=== PATIENT | male | born 1995 | race Two or more races ===

== ENCOUNTER 2017-08-17 03:00 | Emergency (ER) | payer SELFPAY ==
[2017-08-17 03:10] VITALS: BP 123/74; PULSE 74; RESP 16; TEMP 98.6; O2SAT 96
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
== END 2017-08-17 04:00 ==
DX: S61.511A Laceration without foreign body of right wrist, initial encounter (principal); F17.200 Nicotine dependence, unspecified, uncomplicated; W22.03XA Walked into furniture, initial encounter